=== PATIENT | female | born 1950 | race Caucasian/White ===

== ENCOUNTER 2022-04-16 08:00 | Day surgery (SDC) | payer MEDICARE, OTHER ==
[~2022-04-16] VITALS: Ht 162.6 cm; Wt 66.9 kg
[2022-04-16] MEDS ORDERED: LIDOcaine 1% 30ml preserv. free vial SQ STA (08:19)
[2022-04-16 08:30] VITALS: BP 152/79
[2022-04-16] MEDS ORDERED: vitamin d3 liquid PO (08:47)
[2022-04-16] MEDS ORDERED: CHLO25TA10 PO (08:47)
[2022-04-16] MEDS ORDERED: LORA10TA7 PO (08:47)
[2022-04-16] MEDS ORDERED: LOSA25TA96 PO (08:47)
[2022-04-16] MEDS ORDERED: NAPR220C15 PO (08:47)
[2022-04-16] MEDS ORDERED: ATOR20TA PO (08:47)
[2022-04-16] MEDS ORDERED: FLUT5POW4 (08:47)
[2022-04-16] MEDS ORDERED: MECO10005 PEG (08:47)
[2022-04-16] MEDS ORDERED: MAGN250T11 PO (08:47)
[2022-04-16] MEDS ORDERED: ASPI-1265 PO (08:47)
[2022-04-16] MEDS ORDERED: METO50TA7 PO (08:47)
[2022-04-16 09:45] VITALS: BP 142/92
[2022-04-16 10:15] VITALS: BP 148/66
== END 2022-04-16 10:10 | disposition home or self-care (01) ==
LOC: SSTAY O 08:00
PROVIDERS: ATTEND Nurse Practitioner Family
DX: E04.1 Nontoxic single thyroid nodule (principal); Z88.0 Allergy status to penicillin; Z88.8 Allergy status to other drugs, medicaments and biological substances; Z79.82 Long term (current) use of aspirin; Z79.899 Other long term (current) drug therapy; Z98.890 Other specified postprocedural states
CPT/HCPCS: 10005; 10007; 88173; 88305; A6258; A6449